=== PATIENT | male | born 1985 | race African-American/Black ===

== ENCOUNTER 2024-08-10 15:39 | Inpatient (IN) | payer OTHER, MEDICAID ==
[~2024-08-10] VITALS: Ht 170.2 cm; Wt 83.2 kg
[2024-08-10] VITALS (23 sets, daily range): BP systolic 115–132; BP diastolic 72–101; PULSE 56–72; RESP 12–19; TEMP 36.3–36.5; O2SAT 96–100
[2024-08-10] MEDS: MORPHINE SULFATE 4 MG/ML INJ (FOR IV/IM USE) IV ONE (16:05)
[2024-08-10] MEDS: TETANUS, DIPHTHERIA, PERTUSSIS VAC/PF 0.5ML (>10YR OLD) IM ONE (16:06)
[2024-08-10 16:19] LABS: BASOPHILS % 0.5 % (0.0-2.0); EOSINOPHILS % 1.1 % (0.0-5.0); HEMATOCRIT. 39.4 % (42.0-52.0); HEMOGLOBIN. 12.9 g/dL (14.0-18.0); LYMPHOCYTES % 37.8 % (20.0-50.0); MEAN PLATELET VOLUME 7.6 fl (7.4-10.4); MONOCYTES % 6.9 % (2.0-8.0); NEUTROPHILS % 53.7 % (40.0-76.0); PLATELET 238 x1000/uL (130-400); RED BLOOD CELL COUNT 4.79 mill/uL (4.7-6.1); RED CELL DISTRIBUTION WIDTH 13.9 % (11.6-14.6)
[2024-08-10 16:37] LABS: INR 1.0
[2024-08-10 16:39] LABS: CREATININE 1.1 mg/dL (0.6-1.3); UREA NITROGEN BLOOD 11 mg/dL (9-23)
[2024-08-10] MEDS: LIDOCAINE 5% PATCH TOP ONE (17:02)
[2024-08-10] MEDS: LEVETIRACETAM 500MG PREMIX 100 ML IV SCH ×2 (17:27→23:48)
[2024-08-10] MEDS ORDERED: NICARDIPINE 100 MG in SODIUM CHLORIDE 0.9% 60 ML IV PRN (19:00)
[2024-08-10] MEDS: DEXT 5%/LACTATED RINGERS 1,000 ML IV SCH (19:06)
[2024-08-10] MEDS ORDERED: ONDANSETRON HCL 4MG/2ML INJ IV PRN (19:45)
[2024-08-10] MEDS ORDERED: POTASSIUM CHLORIDE 20MEQ TABLET SR PO PRN (19:45)
[2024-08-10] MEDS ORDERED: MAGNESIUM/ALUMINUM HYDROXIDE/SIMETHICONE 30ML UDC PO PRN (19:45)
[2024-08-10] MEDS ORDERED: NALOXONE HCL 0.4MG/ML VIAL IV PRN (19:45)
[2024-08-10] MEDS ORDERED: DOCUSATE SODIUM 100MG CAPSULE PO PRN (19:45)
[2024-08-10] MEDS: ENOXAPARIN 40MG/0.4ML SYR SUBCUT SCH (20:30)
[2024-08-10] MEDS ORDERED: LEVETIRACETAM 500MG in NACL 100ML PREMIX IV SCH (21:00)
[2024-08-10] MEDS: HYDROCODONE/ACETAMINOPHEN 5/325MG TABLET PO PRN (21:36)
[2024-08-10] MEDS ORDERED: IOHEXOL-300 100 ML BOTTLE ONE (22:03)
[2024-08-11] VITALS (63 sets, daily range): BP systolic 96–127; BP diastolic 66–95; PULSE 55–101; RESP 12–25; TEMP 36.3–38.7; O2SAT 92–100
[2024-08-11 05:04] LABS: BASOPHILS % 0.5 % (0.0-2.0); EOSINOPHILS % 0.2 % (0.0-5.0); HEMATOCRIT. 38.9 % (42.0-52.0); HEMOGLOBIN. 12.6 g/dL (14.0-18.0); LYMPHOCYTES % 16.2 % (20.0-50.0); MEAN PLATELET VOLUME 7.5 fl (7.4-10.4); MONOCYTES % 8.8 % (2.0-8.0); NEUTROPHILS % 74.3 % (40.0-76.0); PLATELET 204 x1000/uL (130-400); RED BLOOD CELL COUNT 4.65 mill/uL (4.7-6.1); RED CELL DISTRIBUTION WIDTH 13.8 % (11.6-14.6)
[2024-08-11 05:29] LABS: CREATININE 1.0 mg/dL (0.6-1.3)
[2024-08-11 05:30] LABS: TRIGLYCERIDE 142 mg/dL (0-150); TROPONIN I HIGH SENSITIVITY 9 ng/L (3.0-53)
[2024-08-11 05:31] LABS: LDL CHOLESTEROL 137 mg/dL (5-100); UREA NITROGEN BLOOD 9 mg/dL (9-23)
[2024-08-11 05:32] LABS: PHOSPHORUS 3.2 mg/dL (2.5-4.9)
[2024-08-11 05:33] LABS: T4 FREE 1.11 ng/dL (0.89-1.76)
[2024-08-11 09:08] LABS: *AMPHETAMINES SCREEN URINE PRESUMPTIVE POSITIVE (NEGATIVE); *BARBITURATES SCREEN URINE NEGATIVE (NEGATIVE); *BENZODIAZEPINES SCREEN URINE NEGATIVE (NEGATIVE); *COCAINE SCREEN URINE NEGATIVE (NEGATIVE); METHADONE URINE SCREEN NEGATIVE (NEGATIVE); OPIATES URINE SCREEN PRESUMPTIVE POSITIVE (NEGATIVE); PHENCYCLIDINE URINE SCREEN NEGATIVE (NEGATIVE)
[2024-08-11 09:09] LABS: CANNABINOID URINE SCREEN PRESUMPTIVE POSITIVE (NEGATIVE); ECSTASY MDMA SCREEN URINE CONF.TEST INDICATED (NEGATIVE)
[2024-08-11] MEDS: IPRATROPIUM/ALBUTEROL 0.5-3(2.5)MG/3ML NEB HHN PRN (14:18)
[2024-08-11] MEDS: MORPHINE SULFATE 2 MG/ML INJ (NOT FOR IM USE) IV PRN (21:29)
[2024-08-12] VITALS (14 sets, daily range): BP systolic 112–125; BP diastolic 64–85; PULSE 76–103; RESP 15–45; TEMP 36.7–37.9; O2SAT 86–100
[2024-08-12 06:31] LABS: CREATININE 0.9 mg/dL (0.6-1.3)
[2024-08-12 06:32] LABS: UREA NITROGEN BLOOD 7 mg/dL (9-23)
[2024-08-12 06:35] LABS: PHOSPHORUS 2.8 mg/dL (2.5-4.9)
[2024-08-12 06:44] LABS: BASOPHILS % 0.5 % (0.0-2.0); EOSINOPHILS % 0.4 % (0.0-5.0); HEMATOCRIT. 35.1 % (42.0-52.0); HEMOGLOBIN. 11.4 g/dL (14.0-18.0); LYMPHOCYTES % 29.1 % (20.0-50.0); MEAN PLATELET VOLUME 8.1 fl (7.4-10.4); MONOCYTES % 11.1 % (2.0-8.0); NEUTROPHILS % 58.9 % (40.0-76.0); PLATELET 178 x1000/uL (130-400); RED BLOOD CELL COUNT 4.28 mill/uL (4.7-6.1); RED CELL DISTRIBUTION WIDTH 13.6 % (11.6-14.6)
[2024-08-12] MEDS: IPRATROPIUM/ALBUTEROL 0.5-3(2.5)MG/3ML NEB HHN SCH (14:24)
[2024-08-12 16:02] LABS: CLARITY URINE CLEAR (CLEAR); COLOR URINE YELLOW (YELLOW); GLUCOSE URINE NEGATIVE (NEGATIVE); KETONES URINE NEGATIVE (NEGATIVE); LEUKOCYTE ESTERASE URINE TRACE (NEGATIVE); NITRITE URINE POSITIVE (NEGATIVE); OCCULT BLOOD URINE 1+ (NEGATIVE); PH URINE 7.5 (4.5-8.0); PROTEIN URINE NEGATIVE (NEGATIVE); SPECIFIC GRAVITY URINE 1.015 (1.005-1.030); UROBILINOGEN URINE 1.0 E.U./dL (0.2-1.0)
[2024-08-12 16:23] LABS: BACTERIA URINE 3+; SQUAMOUS EPITHELIAL CELL URINE RARE /lpf (RARE/1+); WBC URINE 0-2 /hpf (0-2)
[2024-08-12] MEDS: MORPHINE SULFATE 4 MG/ML INJ (FOR IV/IM USE) IV PRN (17:17)
[2024-08-13] VITALS (15 sets, daily range): BP systolic 106–129; BP diastolic 61–91; PULSE 83–100; RESP 14–25; TEMP 36.7–37.6; O2SAT 88–98
[2024-08-13] MEDS: LIDOCAINE 5% PATCH TOP SCH (06:30)
[2024-08-13] MEDS: ACETAMINOPHEN 325MG TABLET PO PRN (20:24)
[2024-08-14] VITALS (14 sets, daily range): BP systolic 92–142; BP diastolic 62–109; PULSE 87–106; RESP 13–30; TEMP 36.6–37.8; O2SAT 89–100
[2024-08-14] MEDS ORDERED: HYDROCODONE/ACETAMINOPHEN 5/325MG TABLET PO PRN (09:15)
[2024-08-14] MEDS: PIPERACILLIN/TAZO 3.375G/50ML 50 ML IV SCH (09:55)
[2024-08-14] MEDS: LIDOCAINE HCL 4% CREAM 76GM TUBE TP SCH (11:00)
[2024-08-14 11:39] LABS: PLATELET 236 x1000/uL (130-400); RED BLOOD CELL COUNT 4.18 mill/uL (4.7-6.1); RED CELL DISTRIBUTION WIDTH 13.8 % (11.6-14.6)
[2024-08-14 11:49] LABS: CREATININE 0.8 mg/dL (0.6-1.3)
[2024-08-14 11:52] LABS: UREA NITROGEN BLOOD 11 mg/dL (9-23)
[2024-08-14 11:54] LABS: HCG SCREEN NEGATIVE
[2024-08-14] MEDS: GUAIFENESIN 600MG ER TABLET PO SCH (12:20)
[2024-08-14] MEDS: TRAMADOL 50MG TABLET PO PRN (16:38)
[2024-08-14] MEDS: HYDROCODONE/ACETAMINOPHEN 10/325MG TABLET PO PRN (20:17)
[2024-08-15] VITALS: BP 113/69; PULSE 88; RESP 18; TEMP 36.6; O2SAT 98
[2024-08-15 04:00] VITALS: BP 107/61; PULSE 85; RESP 19; TEMP 36.4; O2SAT 99
[2024-08-15] MEDS: LORAZEPAM 0.5MG TABLET PO PRN (06:35)
[2024-08-15] MEDS: GUAIFENESIN-DM 200MG-20MG/10ML UDC PO PRN (06:35)
[2024-08-15 08:00] VITALS: BP 96/60; PULSE 83; RESP 18; TEMP 36.2; O2SAT 95
[2024-08-15 08:12] LABS: BASOPHILS % 0.6 % (0.0-2.0); EOSINOPHILS % 3.0 % (0.0-5.0); HEMATOCRIT. 33.4 % (42.0-52.0); HEMOGLOBIN. 10.8 g/dL (14.0-18.0); LYMPHOCYTES % 30.2 % (20.0-50.0); MEAN PLATELET VOLUME 7.5 fl (7.4-10.4); MONOCYTES % 12.9 % (2.0-8.0); NEUTROPHILS % 53.3 % (40.0-76.0); PLATELET 255 x1000/uL (130-400); RED BLOOD CELL COUNT 4.08 mill/uL (4.7-6.1); RED CELL DISTRIBUTION WIDTH 13.2 % (11.6-14.6)
[2024-08-15 08:37] LABS: CREATININE 0.8 mg/dL (0.6-1.3); UREA NITROGEN BLOOD 15 mg/dL (9-23)
[2024-08-15 12:00] VITALS: BP 105/61; PULSE 73; RESP 15; TEMP 36.7; O2SAT 91
[2024-08-15] MEDS ORDERED: RDML10 PO (12:47)
[2024-08-15] MEDS ORDERED: AZIT500T MT (12:47)
[2024-08-15] MEDS ORDERED: KEPP500 MT (14:49)
[2024-08-15 16:00] VITALS: BP 97/64; PULSE 88; RESP 15; TEMP 36.4; O2SAT 90
[2024-08-15 20:00] VITALS: BP 123/78; PULSE 80; RESP 19; TEMP 36.2; O2SAT 97
[2024-08-16] VITALS: BP 111/76; PULSE 82; RESP 20; TEMP 36.5; O2SAT 98
[2024-08-16 04:00] VITALS: BP 131/68; PULSE 79; RESP 19; TEMP 36.7; O2SAT 98
[2024-08-16 08:00] VITALS: BP 111/60; PULSE 86; RESP 19; TEMP 36.7; O2SAT 98
[2024-08-16] MEDS ORDERED: ACET-3800 MT (10:41)
[2024-08-16] MEDS ORDERED: HYDR-4001 MT (10:41)
[2024-08-16] MEDS ORDERED: LIDO5CRE26 TP (10:41)
[2024-08-16 12:00] VITALS: BP 101/60; PULSE 87; RESP 18; TEMP 36.4; O2SAT 96
[2024-08-16 13:34] VITALS: BP 111/60; PULSE 89; TEMP 98.1; O2SAT 98
== END 2024-08-16 17:00 | disposition home or self-care (01) | DRG 963 ==
LOC: ER 15:39 → EDBEDREQ 17:23 → EDBEDREQTM 17:23 → ENRESERV 17:49 → MICUNO 18:00 → 5EST 08-11 14:45 → 6WST 08-14 20:29
PROVIDERS: ADMIT Family Medicine Adult Medicine; ATTEND Family Medicine Adult Medicine
DX: S06.6XAA Traumatic subarachnoid hemorrhage with loss of consciousness status unknown, initial encounter (principal); J18.9 Pneumonia, unspecified organism; S27.321A Contusion of lung, unilateral, initial encounter; S22.42XA Multiple fractures of ribs, left side, initial encounter for closed fracture; S06.5XAA Traumatic subdural hemorrhage with loss of consciousness status unknown, initial encounter; S00.81XA Abrasion of other part of head, initial encounter; S42.192A Fracture of other part of scapula, left shoulder, initial encounter for closed fracture; V13.4XXA Pedal cycle driver injured in collision with car, pick-up truck or van in traffic accident, initial encounter; F19.10 Other psychoactive substance abuse, uncomplicated; Y92.89 Other specified places as the place of occurrence of the external cause; Y99.8 Other external cause status; Y93.55 Activity, bike riding
CPT/HCPCS: 36415; 71045; 71260; 74177; 80048; 80061; 80305; 81003; 83036; 83735; 84100; 84439; 84484; 84703; 85025; 85027; 86850; 86900; 90715; 93970; 94070; 94640; 94664; 94760; 98960; 99291; A4606; J1650; J1953; J2270; J2543; J7121; Q9967

== ENCOUNTER 2024-12-01 22:45 | Emergency (ER) | payer MEDICAID ==
[~2024-12-01] VITALS: Ht 170.2 cm; Wt 73.0 kg
[~2024-12-01 22:45] MED LIST: ACET-3800 MT; AZIT500T MT; HYDR-4001 MT; KEPP500 MT; LIDO5CRE26 TP; RDML10 PO
[2024-12-01 23:01] VITALS: O2SAT 98
[2024-12-02] MEDS ORDERED: CEPH500C2 MT (00:15)
[2024-12-02] MEDS ORDERED: SULF1TAB48 MT (00:15)
[2024-12-02] MEDS: SULFAMETHOXAZOLE/TRIMETHOPRIM 400/80MG TAB PO ONE (00:24)
[2024-12-02] MEDS: CEPHALEXIN 250MG CAPSULE PO ONE (00:24)
[2024-12-02] MEDS: CETIRIZINE 10MG TABLET PO SCH (00:24)
[2024-12-02] MEDS ORDERED: BO1 TP (00:26)
[2024-12-02 00:53] VITALS: BP 149/89; PULSE 87; RESP 15; TEMP 36.5; O2SAT 99
== END 2024-12-02 00:58 | disposition home or self-care (01) ==
LOC: ER 22:45
DX: L03.313 Cellulitis of chest wall (principal); I25.2 Old myocardial infarction; J45.909 Unspecified asthma, uncomplicated
CPT/HCPCS: 99284